=== PATIENT | female | born 1980 | race Caucasian/White ===

== ENCOUNTER 2017-08-04 11:39 | Outpatient (CLI) | END 2017-08-04 14:50 | disposition home or self-care (01) ==

== ENCOUNTER 2017-08-26 10:45 | Inpatient (IN) | END 2017-08-28 18:10 | disposition home or self-care (01) | DRG 775 ==

== ENCOUNTER 2019-01-19 12:15 | Emergency (ER) | payer MEDICAID ==
[~2019-01-19] VITALS: Ht 154.9 cm; Wt 104.8 kg
[~2019-01-19 12:15] MED LIST: PREN1TAB79 PO
[2019-01-19 12:17] VITALS: Ht 154.9 cm; Wt 104.8 kg
[2019-01-19] MEDS ORDERED: HYDROCODONE/APAP (5/325) TAB PO ONE (13:00)
[2019-01-19] MEDS ORDERED: IBUPROFEN 800 MG TAB PO ONE (13:00)
[2019-01-19] MEDS ORDERED: IBUP800T48 PO (13:01)
[2019-01-19] MEDS ORDERED: MED4DP PO (13:01)
--- NOTE | 2019-01-19 13:02 | ERD ---
ER Documentation Chief Complaint Chief Complaint Right knee pain x last night, left heal pain x 1 month UKN cause HPI 38-year-old female resents to ED complaining of right knee pain x1 month. She reports that the pain has worsened since yesterday and that is why she came to the ED today. She reports that 4 years ago she fell on her knee and slightly injured it. Her provider prescribed ibuprofen and rest when this occurred. She reports similar pain today and rates it 7 out of 10 sharp achy pain. She reports the pain is located laterally on both sides of her knee and behind her knee. She reports that she took Goltry this morning which helped with the pain but that has worn off now. She did have her knee pain. She denies any recent falls or injuries. ROS All systems reviewed and are negative except as per history of present illness. Medications Home Meds Active Scripts Methylprednisolone* (Medrol* DOSE PACK) 4 Mg/Dose-Pack Tab.ds.pk, 4 MG PO . DIRECTED, #5 PACKET Prov:VICTOR HUGO CHAVIRA PA-C 01/19/19 Ibuprofen* (Motrin*) 800 Mg Tab, 800 MG PO Q6H PRN for PAIN AND OR ELEVATED TEMP, #30 TAB Prov:VICTOR HUGO CHAVIRA PA-C 01/19/19 Reported Medications Vit W-Ca,Fe,FA(<1 mg) ( Vitamins) 1 Each Tablet, 1 EACH PO, TAB 08/04/17 Allergies Allergies: Coded Allergies: No Known Drug Allergies (Unverified Allergy, Unknown, 01/19/19) PMhx/Soc Medical and Surgical Hx: pt denies Medical Hx FmHx Family History: No diabetes Physical Exam Vitals Vital Signs Date Temp Pulse Resp B/P (MAP) Pulse Ox O2 O2 Flow FiO2 Time Delivery Rate 01/19/19 98.4 92 18 138/83 98 12:17 (101) Physical Exam Const: No acute distress Head: Atraumatic Eyes: Normal Conjunctiva ENT: Normal External Ears, Nose and Mouth. Neck: Full range of motion. No meningismus. Resp: Clear to auscultation bilaterally Cardio: Regular rate and rhythm, no murmurs Abd: Soft, non tender, non distended. Normal bowel sounds Skin: No petechiae or rashes Back: No midline or flank tenderness Ext: Right knee: Tenderness behind the knee the popliteal region, tenderness to the medial and lateral aspects of the knee. Negative anterior drawer, posterior drawer, negative Isabell's, negative Kimberlee's, negative MCL and LCL. Slightly swollen knee Neur: Awake and alert Psych: Normal Mood and Affect Results 24 hrs Current Medications Medications Dose Sig/Gemma Start Time Status Last (Trade) Ordered Route PRN Stop Time Admin Dose Reason Admin Ibuprofen 800 mg ONCE ONCE 01/19/19 DC 01/19/19 (Motrin) PO 13:00 13:06 01/19/19 13:01 1 tab ONCE ONCE 01/19/19 DC 01/19/19 Acetaminophen PO 13:00 13:06 / 01/19/19 13:01 Hydrocodone Bitart (Goltry (5/325)) Procedures/MDM ED COURSE: The patient was stable throughout ED course. I kept the patient informed of laboratory and diagnostic imaging results throughout the ED course. MEDICATIONS GIVEN: Goltry, Motrin Patient tolerated medication well with no adverse reactions. Patient reported improvement in pain. MEDICAL DECISION MAKING: Patient is a 38-year-old female planing of right knee pain x1 month. She has had a previous episode of this similarly 4 years ago and was treated outpatient with NSAIDs. During exam patient looks in acute pain. Movement of the knee shows nothing specific. Patient is guarding heavily. I believe the patient is suffering from inflammation and I believe that outpatient treatment with NSAIDs will help the patient. H&P with other data not c/w emergent process (eg. DVT, AAO, compartment syndrome, nec fasc). No signs of ischemia, neurovascular compromise, compartment syndrome, or septic joint, avascular necrosis, or osteomyelitis. I recommend patient follow-up with primary care provider in the next day for further care and management. Vital signs were reviewed. Patient is afebrile. Patient was not hypoxic. Patient was hemodynamically stable. PRESCRIPTION: Ibuprofen, Medrol Dosepak DISCHARGE: At this time, patient is stable for discharge and outpatient management. I have instructed the patient to follow-up with his/her primary care physician in 1-2 days. I have discussed with the patient the possibility of needing to see a specialist for further workup and imaging studies if symptoms persist. I have instructed the patient to promptly return to the ER for any new or worsening symptoms including increased pain, fever, nausea, vomiting, weakness or LOC. The patient and/or family expressed understanding of and agreement with this plan. All questions were answered. Home care instructions were provided. Disclaimer: Inadvertent spelling and grammatical errors are likely due to EHR/dictation software use and do not reflect on the overall quality of patient care. Also, please note that the electronic time recorded on this note does not necessarily reflect the actual time of the patient encounter. Departure Diagnosis: Primary Impression: Knee pain Chronicity: unspecified Laterality: right Qualified Codes: M25.561 - Pain in right knee Condition: Fair Patient Instructions: Knee Pain, Uncertain Cause Referrals: [facility] YOU HAVE RECEIVED A MEDICAL SCREENING EXAM AND THE RESULTS INDICATE THAT YOU DO NOT HAVE A CONDITION THAT REQUIRES URGENT TREATMENT IN THE EMERGENCY DEPARTMENT. FURTHER EVALUATION AND TREATMENT OF YOUR CONDITION CAN WAIT UNTIL YOU ARE SEEN IN YOUR DOCTORS OFFICE WITHIN THE NEXT 1-2 DAYS. IT IS YOUR RESPONSIBILITY TO MAKE AN APPOINTMENT FOR FOLOW-UP CARE. IF YOU HAVE A PRIMARY DOCTOR --you should call your primary doctor and schedule an appointment IF YOU DO NOT HAVE A PRIMARY DOCTOR YOU CAN CALL OUR PHYSICIAN REFERRAL HOTLINE AT IF YOU CAN NOT AFFORD TO SEE A PHYSICIAN YOU CAN CHOSE FROM THE FOLLOWING [facility] [address] [facility]. [facility] [address] [facility] [facility] [address] [facility] [facility] [address] [facility]. [facility] [address] [facility]. [facility]. [address] [facility]. [facility] YOU HAVE RECEIVED A MEDICAL SCREENING EXAM AND THE RESULTS INDICATE THAT YOU DO NOT HAVE A CONDITION THAT REQUIRES URGENT TREATMENT IN THE EMERGENCY DEPARTMENT. FURTHER EVALUATION AND TREATMENT OF YOUR CONDITION CAN WAIT UNTIL YOU ARE SEEN IN YOUR DOCTORS OFFICE WITHIN THE NEXT 1-2 DAYS. IT IS YOUR RESPONSIBILITY TO MAKE AN APPOINTMENT FOR FOLOW-UP CARE. IF YOU HAVE A PRIMARY DOCTOR --you should call your primary doctor and schedule and appointment IF YOU DO NOT HAVE A PRIMARY DOCTOR YOU CAN CALL OUR PHYSICIAN REFERRAL HOTLINE AT . IF YOU CAN NOT AFFORD TO SEE A PHYSICIAN YOU CAN CHOSE FROM THE FOLLOWING [facility] INSTITUTIONS: [facility] [address] [place] [address] [facility] [address] [place] [address] [facility] [address] [place] [address] [facility] Care 7 a.m.- 11 p.m. Every Day of the Week NO APPOINTMENT OR AUTHORIZATION NEEDED Additional Instructions: Llame al doctor MAANA y janna nilam MAXWELL PARA DENTRO DE 2-3 DUKES.Dgale a la secretaria que nosotros le instruimos hacer esta maxwell.Avise o llame si barone condicin se empeora antes de la maxwell. Regresa aqui si peor o no mejor. VICTOR HUGO CHAVIRA PA-C Jan 19, 2019 13:02
== END 2019-01-19 14:08 | disposition home or self-care (01) ==
LOC: FTE 12:15
DX: M25.561 Pain in right knee (principal)
CPT/HCPCS: Z7502; Z7610; 99283